=== PATIENT | female | born 1995 | race Caucasian/White ===

== ENCOUNTER 2020-04-30 17:45 | Inpatient (IN) | payer OTHER ==
[2020-04-30] MEDS ORDERED: DINOPROSTONE 10 MG VAGINAL SUPPOSITORY VG ONE (18:13)
--- NOTE | 2020-04-30 18:17 | HP ---
Past Medical History - Admission History Source: Patient, Family Member Limitations to Obtaining History: No Limitations - Past Medical History ...: 1 ...Para: 0 ... Weeks Gestation by Dates: 41 ...EDC by Marta: 04/24/20 - Past Surgical History Hx Myomectomy: No Hx Transabdominal Cerclage: No - Smoking History Smoking history: Never smoked Have you smoked in the past 12 months: No - Alcohol/Substance Use Hx Alcohol Use: No History of Substance Use: reports: None - Social History ADL: Independent History of Recent Travel: No Home Medications - Allergies Allergies/Adverse Reactions: Allergies Allergy/AdvReac Type Severity Reaction Status Date / Time No Known Allergies Allergy Verified 04/28/20 12:46 - Home Medications Home Medications: Ambulatory Orders Pnv No.95/Ferrous Fum/Folic AC [ Formula] 1 each PO DAILY 04/07/20
[2020-04-30 18:23] VITALS: BMI 30.2
--- NOTE | 2020-04-30 18:44 | PN ---
Progress Note (short form) - Note Progress Note: 24 y old p0 admited at 40+6 weeks gestation for iduction of labor , pt. had a follow up with maternal medicine with several sonogram follow uo the growth of fetus , EFW 3000 Gm . +FM, no bleeding , no ROM . FHR 150/ min + Mod, variability . NO CTX . CVX long /closed . post . 40% . Cephalic . intact . cervidil insertion for cervical ripping , will cont. monitor . Pain management prn . obtain PNC chart
[2020-04-30 20:03] LABS: BASO % 0.2 % (0-2.0); EOS % 1.5 % (0-4.5); HEMATOCRIT 31.5 % (32.4-45.2); HEMOGLOBIN 10.8 GM/dL (10.7-15.3); LYMPH % 16.9 % (8-40); MCHC 34.4 g/dl (32.0-36.0); MEAN CELL VOLUME 93.1 fl (80-96); MEAN PLT VOLUME 8.3 fl (7.5-11.1); MONO % 9.1 % (3.8-10.2); NEUT % 72.3 % (42.8-82.8); PLATELET COUNT 234 K/MM3 (134-434); RBC 3.38 M/mm3 (3.60-5.2); RDW 13.4 % (11.6-15.6); WHITE BLOOD COUNT 12.4 K/mm3 (4.0-10.0)
[2020-04-30 20:11] LABS: INR 0.92 (0.83-1.09); PROTHROMBIN TIME (PATIENT) 10.8 SEC (9.7-13.0)
[2020-04-30 20:14] LABS: ACTIVATED PTT 26.5 SECONDS (25.2-36.5)
[2020-04-30 20:24] LABS: BLOOD UREA NITROGEN 11.1 mg/dL (7-18); CALCIUM 9.1 mg/dL (8.5-10.1); CREATININE 0.5 mg/dL (0.55-1.3); POTASSIUM 3.9 mmol/L (3.5-5.1)
[2020-04-30] MEDS: ELECTROLYTE-148 SOLN 1,000 ML IV SCH (21:00)
[2020-05-01] MEDS ORDERED: OXYTOCIN 30 UNITS in 0.9% NS 30 UNIT/500 ML INFUS.BAG IVPB ONE (09:33)
[2020-05-01] MEDS ORDERED: OXYTOCIN 30 UNITS in 0.9% NS 30 UNIT/500 ML INFUS.BAG IVPB SCH (11:45)
[2020-05-01] MEDS ORDERED: BUTORPHANOL TARTRATE 2 MG/ML VIAL ONE (15:16)
[2020-05-01] MEDS ORDERED: PROMETHAZINE HCL 25 MG/1 ML VIAL ONE (15:16)
[2020-05-01] MEDS ORDERED: PROMETHAZINE HCL 25 MG/1 ML VIAL IVPB ONE (15:30)
[2020-05-01] MEDS ORDERED: BUTORPHANOL TARTRATE 2 MG/ML VIAL IVPB ONE (15:30)
--- NOTE | 2020-05-01 17:20 | PN ---
Progress Note (short form) - Note Progress Note: Patient seen and evaluated at bed side , patient received Phengren for pain and fells comfortable, in NAD VE: 8/100/0 [place]: Q3-4 min FHR: category I AROM Clear A/P IUP 41 weeks in labor will continue labor augmentation with Pitocin AROM Clear minimal fluid Anticipating
[2020-05-01] MEDS ORDERED: LIDOCAINE HCL 1% PRESERVATIVE FREE - 30ML VIAL ONE ×2 (17:51→20:12)
--- NOTE | 2020-05-01 19:23 | PN ---
Progress Note (short form) - Note Progress Note: Patient seen and evaluated at bed side , patient received Phengren for pain and fells comfortable, in NAD VE: Fully/100/+1 [place]: Q2-3 min FHR: category I A/P IUP 41 weeks in labor will continue labor augmentation with Pitocin Patient was laboring down Will start pushing Anticipating
--- NOTE | 2020-05-01 20:36 | PROC ---
Obstetrical Vaccum Device - Doc. Following Use of Vaccum Device Indications for use: Maternal Exhaustion (VAVD due to very poor maternal effort, one application no POP OFFS), Prolonged Second Stage Risks and Benefits Explained: Yes (Poor maternal effort) Consent on Chart: Yes Dilation (0-10): 10 Station: 3 Molding: No Position: OP Caput: Yes Proper placement of cup confirmed: Yes Number of pulls: 1 Number of pop-offs: 0 Duration of time cup on head (min): 1 Appearance of head on delivery: Normal Folder Operator present during vacuum extraction: Yes Folder Operator & nursery staff notified of vacuum extraction: Yes
[2020-05-01] MEDS ORDERED: METHYLERGONOVINE MALEATE 0.2 MG/1 ML AMP IM PRN (20:44)
[2020-05-01] MEDS ORDERED: BENZOCAINE 28 GM HEMORRHOIDAL OINTMENT TP PRN (20:44)
[2020-05-01] MEDS ORDERED: BISACODYL 10 MG SUPP.RECT RC PRN (20:44)
--- NOTE | 2020-05-01 20:44 | PN ---
Delivery - Delivery Vaginal Delivery: Vacuum Assist (VAVD due to poor maternal effort, one application no POP OFFS, over Midline episiotomy, live Baby boy, AGARS 9/9, head deliverd atrmaticly in OP postion, shoulders and body delverd spontenously smothly, cord clamped and cut, baby handed off to awating pediadtrecian.), Vacuum Extraction (VAVD due to poor maternal effort, one application no POP OFFS, over Midline episiotomy, live Baby boy, AGARS 9/9, head deliverd atrmaticly in OP postion, shoulders and body delverd spontenously smothly, cord clamped and cut, baby handed off to awating pediadtrecian.) Type of Anesthesia: Local Episiotomy/Laceration: Midline EBL (cc): 350 Delivery, Single - Stages of Labor Date 1st Stage Initiatied: 04/30/20 Date 2nd Stage Initiated: 05/01/20 Date of Delivery: 05/01/20 Placenta: Yes: Spontaneous - Condition of Mlt/Management Sme Present: Yes Infant Gender: Male Position: OP (VAVD due to poor maternal effort, one application no POP OFFS, over Midline episiotomy, live Baby boy, AGARS 9/9, head deliverd atrmaticly in OP postion, shoulders and body delverd spontenously smothly, cord clamped and cut, baby handed off to awating pediadtrecian.) - [place] Feeding Plan Initial Plan: Elected not to breastfeed exclusively throughout hospitalization Remarks - Remarks Remarks: VAVD due to poor maternal effort, one application no POP OFFS, over Midline episiotomy, live Baby boy, AGARS 9/9, head delivered atrumaticly in OP position, shoulders and body delivered spontaneously smoothly, cord around the body, cord clamped and cut, baby handed off to awaiting courtesy bus driver, Midline episiotomy repaired with 2-O chromic under local anethesia, EBL 350 ML, all lap and instrument count correct X2., Mother and baby in stable condition.
[2020-05-01] MEDS ORDERED: OXYTOCIN 20 UNITS in 0.9% NS 20 UNIT/1,000 ML INFUS.BAG IV SCH (20:45)
[2020-05-01] MEDS ORDERED: DOCUSATE SODIUM 100 MG CAPSULE (FP) PO PRN (20:51)
[2020-05-01] MEDS ORDERED: oxyCODONE HCL 5 MG TABLET PO PRN (21:04)
[2020-05-01] MEDS ORDERED: ACETAMINOPHEN 325 MG TABLET (FP) PO PRN (21:05)
[2020-05-01] MEDS ORDERED: OXYTOCIN 20 UNITS in 0.9% NS 20 UNIT/1,000 ML INFUS.BAG IV ONE (22:13)
[2020-05-02] MEDS: BENZOCAINE 20% 57 GM BOTTLE TP PRN ×2 (02:55→22:36)
[2020-05-02] MEDS: FERROUS SO4 325 MG TABLET (FP) PO SCH ×2 (08:05→17:50)
[2020-05-02] MEDS: ACETAMINOPHEN 325 MG TABLET (FP) PO PRN ×2 (08:06→22:32)
[2020-05-02] MEDS: WITCH HAZEL 50% (TUCKS) 40 PAD/JAR PAD TP PRN ×2 (08:07→22:37)
[2020-05-02] MEDS: IBUPROFEN 600 MG TABLET (FP) PO PRN ×2 (08:07→22:31)
[2020-05-02 08:15] LABS: BASO % 0.1 % (0-2.0); EOS % 0.3 % (0-4.5); HEMATOCRIT 21.4 % (32.4-45.2); HEMOGLOBIN 7.1 GM/dL (10.7-15.3); LYMPH % 9.9 % (8-40); MCH 30.6 pg (25.7-33.7); MCHC 33.3 g/dl (32.0-36.0); MEAN CELL VOLUME 91.8 fl (80-96); NEUT % 80.7 % (42.8-82.8); PLATELET COUNT 195 K/MM3 (134-434); RBC 2.33 M/mm3 (3.60-5.2); RDW 13.4 % (11.6-15.6); WHITE BLOOD COUNT 18.2 K/mm3 (4.0-10.0)
[2020-05-02] MEDS: PRENATAL VITAMINS W/ FOLIC ACID TABLET (FP) PO SCH (09:37)
[2020-05-02] MEDS: ELECTROLYTE-148 SOLN 1,000 ML IV SCH (09:38)
[2020-05-02] MEDS: AMPICILLIN - 2 GM in SODIUM CHLORIDE 100 ML IVPB SCH ×3 (13:27→20:06)
[2020-05-02] MEDS: GENTAMICIN 80 MG PREMIXED IVPB 80 MG/100 ML BAG IVPB SCH ×2 (14:22→17:51)
[2020-05-02] MEDS: CLINDAMYCIN 900 MG PREMIX IVPB 900 MG/50 ML BAG IVPB SCH ×2 (14:22→17:51)
--- NOTE | 2020-05-02 17:57 | PN ---
Post Progress Note Type of Delivery: Vacuum Assist Vag Del Vital Signs: Vital Signs Temperature 98.1 F 05/02/20 16:02 Pulse Rate 79 05/02/20 16:02 Respiratory Rate 18 05/02/20 16:02 Blood Pressure 108/68 05/02/20 16:02 O2 Sat by Pulse Oximetry (%) 96 05/01/20 23:00 Breast Exam: Yes: Soft Uterus: Yes: Fundus Firm Incision: Yes: Sutures intact Abdomen/GI: Yes: Abdomen soft, Tolerating PO Lochia: Yes: Serosa Lochia, amount: Small Extremities: Yes: Calves non-tender Perineum: Yes: Episiotomy Activity: Ambulating (PPD#1 S/P VAVDdue to poor maternal effort doing well, Hgb 7.1, Tolerating diet, voiding and ambulating without difficulty) - Labs Labs: CBC WBC 18.2 K/mm3 (4.0-10.0) H 05/02/20 07:09 RBC 2.33 M/mm3 (3.60-5.2) L 05/02/20 07:09 Hgb 7.1 GM/dL (10.7-15.3) L 05/02/20 07:09 Hct 21.4 % (32.4-45.2) L D 05/02/20 07:09 MCV 91.8 fl (80-96) 05/02/20 07:09 MCH 30.6 pg (25.7-33.7) 05/02/20 07:09 MCHC 33.3 g/dl (32.0-36.0) 05/02/20 07:09 RDW 13.4 % (11.6-15.6) 05/02/20 07:09 Plt Count 195 K/MM3 (134-434) 05/02/20 07:09 MPV 8.0 fl (7.5-11.1) 05/02/20 07:09 Absolute Neuts (auto) 14.7 K/mm3 (1.5-8.0) H 05/02/20 07:09 Neutrophils % 80.7 % (42.8-82.8) 05/02/20 07:09 Lymphocytes % 9.9 % (8-40) D 05/02/20 07:09 Monocytes % 9.0 % (3.8-10.2) 05/02/20 07:09 Eosinophils % 0.3 % (0-4.5) 05/02/20 07:09 Basophils % 0.1 % (0-2.0) 05/02/20 07:09 Nucleated RBC % 0 % (0-0) 05/02/20 07:09 Other Findings, Remarks: PPD#1 S/P VAVD due to poor maternal effort, doing well, tolerating diet, ambulating, voiding without difficulty, +BM. VS: stable, had tachycardia earlier PE: AAOX3 in NAD HEENT: NC/AT, Supple Chest: CTA, S1/S2 Abd: soft, NT, ND, +ve BS Uterus Firm below the Umbilicus Ext: -C/C/E, negative laura' BL. PP labs Hgb 7.1 A/P PPD#1 S/P VAVD due to poor maternal effort, doing well, Symptomatic anemia Hbg 10.8->7.1 transfusing 2 units PRBC's, F/U CBC in AM tomorrow. Elevated WBC's Endometrities Started triple abx, Amp, Genta & Clinda x 24H OOB as tolerated Will DC home tomorrow if stable and to F/U in [facility]. Patient requested circumcision for baby boy, informed witnessed consent obtained. Problem List - Problems (1) Endometritis following delivery Problems reviewed: Yes Code(s): O86.12 - ENDOMETRITIS FOLLOWING DELIVERY (2) Symptomatic anemia Problems reviewed: Yes Code(s): D64.9 - ANEMIA, UNSPECIFIED (3) Post-dates Problems reviewed: Yes Code(s): O48.0 - POST-TERM (4) Vacuum-assisted vaginal delivery Problems reviewed: Yes Code(s): Z37.9 - OUTCOME OF DELIVERY, UNSPECIFIED (5) Status post vacuum-assisted vaginal delivery Problems reviewed: Yes Code(s): Z87.59 - PERSONAL HISTORY OF COMP OF PREG, CHLDBRTH AND THE PUERP Assessment/Plan PPD#1 S/P VAVD due to poor maternal effort, doing well, tolerating diet, ambulating, voiding without difficulty, +BM. VS: stable, had tachycardia earlier PE: AAOX3 in NAD HEENT: NC/AT, Supple Chest: CTA, S1/S2 Abd: soft, NT, ND, +ve BS Uterus Firm below the Umbilicus Ext: -C/C/E, negative laura' BL. PP labs Hgb 7.1 A/P PPD#1 S/P VAVD due to poor maternal effort, doing well, Symptomatic anemia Hbg 10.8->7.1 transfusing 2 units PRBC's, F/U CBC in AM tomorrow. Elevated WBC's Endometrities Started triple abx, Amp, Genta & Clinda x 24H OOB as tolerated Will DC home tomorrow if stable and to F/U in [facility] [place]. Patient requested circumcision for baby boy, informed witnessed consent obtained.
--- NOTE | 2020-05-02 18:07 | DS ---
Physical Examination Vital Signs: Vital Signs Temperature 98.1 F 05/02/20 16:02 Pulse Rate 79 05/02/20 16:02 Respiratory Rate 18 05/02/20 16:02 Blood Pressure 108/68 05/02/20 16:02 O2 Sat by Pulse Oximetry (%) 96 05/01/20 23:00 Constitutional: Yes: Well Nourished Eyes: Yes: WNL HENT: Yes: WNL Neck: Yes: WNL Cardiovascular: Yes: WNL Respiratory: Yes: WNL Gastrointestinal: Yes: WNL ...Rectal Exam: Yes: WNL Renal/: Yes: WNL Breast(s): Yes: WNL Musculoskeletal: Yes: WNL Extremities: Yes: WNL Edema: No Peripheral Pulses WNL: Yes Wound/Incision: Yes: Clean/Dry, Sutures Intact Neurological: Yes: WNL ...Motor Strength: WNL Psychiatric: Yes: WNL Labs: CBC, BMP 05/02/20 07:09 04/30/20 19:20 Discharge Summary Problems reviewed: Yes Current Active Problems Endometritis following delivery (Acute) Status post vacuum-assisted vaginal delivery (Acute) Symptomatic anemia (Acute) Vacuum-assisted vaginal delivery (Acute) Condition: Stable - Instructions Diet, Activity, Other Instructions: follow up at [facility] with Dr. White on TuesdayMay 07 at 9am. no appointment needed. staff aware. Disposition: HOME - Home Medications Comprehensive Discharge Medication List: Ambulatory Orders Pnv No.95/Ferrous Fum/Folic AC [ Formula] 1 each PO DAILY 04/07/20 Tablet 1 tablet PO DAILY 04/30/20
--- NOTE | 2020-05-02 18:13 | DS ---
Physical Exam-WORKERS COMPENSATION DEFENSE ATTORNEY Vital Signs: Vital Signs Temperature 98.1 F 05/02/20 16:02 Pulse Rate 79 05/02/20 16:02 Respiratory Rate 18 05/02/20 16:02 Blood Pressure 108/68 05/02/20 16:02 O2 Sat by Pulse Oximetry (%) 96 05/01/20 23:00 Constitutional: Yes: Well Nourished Eyes: Yes: WNL HENT: Yes: WNL Neck: Yes: WNL Cardiovascular: Yes: WNL Respiratory: Yes: WNL Gastrointestinal: Yes: WNL ...Rectal Exam: Yes: WNL Renal/: Yes: WNL Pelvis: Yes: WNL External Genitalia: Yes: Normal Vaginal Exam: Yes: Normal Uterus: Yes: Firm ....Post : Yes: Uterus firm, Uterus non-tender Breast(s): Yes: WNL Musculoskeletal: Yes: WNL Extremities: Yes: WNL Edema: No Integumentary: Yes: WNL Wound/Incision: Yes: Clean/Dry, Sutures Intact Neurological: Yes: WNL ...Motor Strength: WNL Psychiatric: Yes: WNL ( PPD#1 S/P VAVD due to poor maternal effort, doing well, tolerating diet, ambulating, voiding without difficulty, +BM. VS: stable, had tachycardia earlier PE: AAOX3 in NAD HEENT: NC/AT, Supple Chest: CTA, S1/S2 Abd: soft, NT, ND, +ve BS Uterus Firm below the Umbilicus Ext: -C/C/E, negative laura' BL. PP labs Hgb 7.1 A/P PPD#1 S/P VAVD due to poor maternal effort, doing well, Symptomatic anemia Hbg 10.8->7.1 transfusing 2 units PRBC's, F/U CBC in AM tomorrow. Elevated WBC's Endometrities Started triple abx, Amp, Genta & Clinda x 24H OOB as tolerated Will DC home tomorrow if stable and to F/U in [facility] [place]. Patient requested circumcision for baby boy, informed witnessed consent obtained.) Labs: CBC, BMP 05/02/20 07:09 04/30/20 19:20 Delivery - Delivery Vaginal Delivery: Vacuum Assist (VAVD due to poor maternal effort, one application no POP OFFS, over Midline episiotomy, live Baby boy, AGARS 9/9, head deliverd atrmaticly in OP postion, shoulders and body delverd spontenously smothly, cord clamped and cut, baby handed off to awating pediadtrecian.), Vacuum Extraction (VAVD due to poor maternal effort, one application no POP OFFS, over Midline episiotomy, live Baby boy, AGARS 9/9, head deliverd atrmaticly in OP postion, shoulders and body delverd spontenously smothly, cord clamped and cut, baby handed off to awating pediadtrecian.) Type of Anesthesia: Local Episiotomy/Laceration: Midline EBL (cc): 350 Delivery, Single - Stages of Labor Date 1st Stage Initiatied: 04/30/20 Time 1st Stage Initiated: 23:00 Date 2nd Stage Initiated: 05/01/20 Time 2nd Stage Initiated: 15:15 Date of Delivery: 05/01/20 Time of Delivery: 20:04 Time Placenta Delivered: 20:09 Placenta: Yes: Spontaneous - Condition of Infant Supervisor Edging/Cut Out And Marking Machine Operator Present: Yes Name: Estephanie Martins Infant Gender: Male Weight: 3.062 kg Position: OP Total Hours ROM (Hrs/Mins): 2 hr 59 mins - 1 Minute Total Score: 9 5 Minutes Total Score: 9 - [place] Feeding Plan Initial Plan: Elected not to breastfeed exclusively throughout hospitalization Discharge Summary Problems reviewed: Yes Current Active Problems Endometritis following delivery (Acute) Status post vacuum-assisted vaginal delivery (Acute) Symptomatic anemia (Acute) Vacuum-assisted vaginal delivery (Acute) Condition: Stable - Instructions Diet, Activity, Other Instructions: follow up at [facility] with Dr. White on TuesdayMay 07 at 9am. no appointment needed. staff aware. Disposition: HOME - Home Medications Comprehensive Discharge Medication List: Ambulatory Orders Pnv No.95/Ferrous Fum/Folic AC [ Formula] 1 each PO DAILY 04/07/20 Tablet 1 tablet PO DAILY 04/30/20
[2020-05-02] MEDS ORDERED: SENNOSIDES/DOCUSATE COMBO (SENNA PLUS) TABLET (UD) PO PRN (22:00)
[2020-05-03] MEDS: AMPICILLIN - 2 GM in SODIUM CHLORIDE 100 ML IVPB SCH ×3 (00:09→08:59)
[2020-05-03] MEDS: CLINDAMYCIN 900 MG PREMIX IVPB 900 MG/50 ML BAG IVPB SCH (01:34)
[2020-05-03] MEDS: GENTAMICIN 80 MG PREMIXED IVPB 80 MG/100 ML BAG IVPB SCH (02:23)
[2020-05-03 07:52] LABS: BASO % 0.3 % (0-2.0); EOS % 1.6 % (0-4.5); HEMATOCRIT 25.6 % (32.4-45.2); HEMOGLOBIN 8.7 GM/dL (10.7-15.3); LYMPH % 13.1 % (8-40); MCH 30.1 pg (25.7-33.7); MCHC 33.9 g/dl (32.0-36.0); MONO % 9.3 % (3.8-10.2); NEUT % 75.7 % (42.8-82.8); PLATELET COUNT 206 K/MM3 (134-434); RBC 2.88 M/mm3 (3.60-5.2); RDW 15.1 % (11.6-15.6); WHITE BLOOD COUNT 20.2 K/mm3 (4.0-10.0)
[2020-05-03] MEDS ORDERED: AMPICILLIN SODIUM 2 GM VIAL ONE (08:21)
[2020-05-03] MEDS ORDERED: SODIUM CHLORIDE 100 ML IVPB ONE (08:21)
[2020-05-03] MEDS: FERROUS SO4 325 MG TABLET (FP) PO SCH (08:59)
[2020-05-03] MEDS: PRENATAL VITAMINS W/ FOLIC ACID TABLET (FP) PO SCH (08:59)
[2020-05-03 09:04] VITALS: BP 100/66; PULSE 77; TEMP 98.1
[2020-05-03 11:15] LABS: ANISOCYTOSIS 0; MACROCYTOSIS 0; PLATELET ESTIMATE NORMAL
--- NOTE | 2020-05-03 13:57 | PN ---
Post Progress Note Type of Delivery: Vacuum Assist Vag Del Vital Signs: Vital Signs Temperature 98.1 F 05/03/20 09:03 Pulse Rate 77 05/03/20 09:03 Respiratory Rate 18 05/03/20 09:00 Blood Pressure 100/66 05/03/20 09:03 O2 Sat by Pulse Oximetry (%) 96 05/03/20 09:00 Breast Exam: Yes: Soft Uterus: Yes: Fundus Firm, Fundus below umbilicus Incision: Yes: Sutures intact Abdomen/GI: Yes: Abdomen soft Lochia: Yes: Serosa Lochia, amount: Small Extremities: Yes: Calves non-tender Perineum: Yes: Episiotomy Activity: Ambulating - Labs Labs: CBC WBC 20.2 K/mm3 (4.0-10.0) H 05/03/20 07:08 RBC 2.88 M/mm3 (3.60-5.2) L 05/03/20 07:08 Hgb 8.7 GM/dL (10.7-15.3) L 05/03/20 07:08 Hct 25.6 % (32.4-45.2) L D 05/03/20 07:08 MCV 89.0 fl (80-96) 05/03/20 07:08 MCH 30.1 pg (25.7-33.7) 05/03/20 07:08 MCHC 33.9 g/dl (32.0-36.0) 05/03/20 07:08 RDW 15.1 % (11.6-15.6) D 05/03/20 07:08 Plt Count 206 K/MM3 (134-434) 05/03/20 07:08 MPV 8.0 fl (7.5-11.1) 05/03/20 07:08 Absolute Neuts (auto) 15.3 K/mm3 (1.5-8.0) H 05/03/20 07:08 Neutrophils % 75.7 % (42.8-82.8) 05/03/20 07:08 Neutrophils % (Manual) 85.9 % (42.8-82.8) H 05/03/20 07:08 Band Neutrophils % 0.0 % 05/03/20 07:08 Lymphocytes % 13.1 % (8-40) D 05/03/20 07:08 Lymphocytes % (Manual) 7.1 % (8-40) L 05/03/20 07:08 Monocytes % 9.3 % (3.8-10.2) 05/03/20 07:08 Monocytes % (Manual) 2 % (3.8-10.2) L 05/03/20 07:08 Eosinophils % 1.6 % (0-4.5) D 05/03/20 07:08 Eosinophils % (Manual) 5.0 % (0-4.5) H 05/03/20 07:08 Basophils % 0.3 % (0-2.0) 05/03/20 07:08 Basophils % (Manual) 0.0 % (0-2.0) 05/03/20 07:08 Myelocytes % (Man) 0 % (0-2) 05/03/20 07:08 Promyelocytes % (Man) 0 % (0-2) 05/03/20 07:08 Blast Cells % (Manual) 0 % (0-0) 05/03/20 07:08 Nucleated RBC % 0 % (0-0) 05/03/20 07:08 Metamyelocytes 0 % (0-2) 05/03/20 07:08 Hypochromia 0 05/03/20 07:08 Platelet Estimate Normal 05/03/20 07:08 Polychromasia 0 05/03/20 07:08 Poikilocytosis 0 05/03/20 07:08 Anisocytosis 0 05/03/20 07:08 Microcytosis 0 05/03/20 07:08 Macrocytosis 0 05/03/20 07:08 Problem List - Problems (1) Endometritis following delivery Problems reviewed: Yes Code(s): O86.12 - ENDOMETRITIS FOLLOWING DELIVERY (2) Symptomatic anemia Problems reviewed: Yes Code(s): D64.9 - ANEMIA, UNSPECIFIED (3) Post-dates Problems reviewed: Yes Code(s): O48.0 - POST-TERM (4) Vacuum-assisted vaginal delivery Problems reviewed: Yes Code(s): Z37.9 - OUTCOME OF DELIVERY, UNSPECIFIED (5) Status post vacuum-assisted vaginal delivery Problems reviewed: Yes Code(s): Z87.59 - PERSONAL HISTORY OF COMP OF PREG, CHLDBRTH AND THE PUERP Assessment/Plan PPD#2 S/P VAVD due to poor maternal effort, doing well, tolerating diet, ambulating, voiding without difficulty, +BM. VS: stable, T 98.2, BP 106/60, P 74, R 20, PO2 96% om RA PE: AAOX3 in NAD HEENT: NC/AT, Supple Chest: CTA, S1/S2 Abd: soft, NT, ND, +ve BS Uterus Firm below the Umbilicus Ext: -C/C/E, negative laura' BL. PP labs Hgb 7.1 -> 8.7 A/P PPD#2 S/P VAVD due to poor maternal effort, doing well, Stable. Symptomatic anemia Hbg 7.1 ->8.7 S/P transfusion 2 units PRBC's, Endometrities S/P triple abx, Amp, Genta & Clinda x 24H, afebrail. OOB as tolerated Will DC home today and [facility] [place]. Circumcision for baby boy done.
== END 2020-05-03 13:27 | disposition home or self-care (01) | DRG 560 ==
LOC: JLDR 17:45 → J3N 05-01 22:18 → J3W 05-02 17:05
PROVIDERS: ADMIT Family Medicine; ATTEND Family Medicine
PROC: 3E0P7VZ Introduction of Hormone into Female Reproductive, Via Natural or Artificial Opening (ICD-10-PCS; 2020-04-30)
PROC: 10D07Z6 Extraction of Products of Conception, Vacuum, Via Natural or Artificial Opening (ICD-10-PCS; principal; 2020-05-01)
PROC: 10907ZC Drainage of Amniotic Fluid, Therapeutic from Products of Conception, Via Natural or Artificial Opening (ICD-10-PCS; 2020-05-01)
PROC: 0W8NXZZ Division of Female Perineum, External Approach (ICD-10-PCS; 2020-05-01)
PROC: 30233N1 Transfusion of Nonautologous Red Blood Cells into Peripheral Vein, Percutaneous Approach (ICD-10-PCS; 2020-05-01)
DX: O48.0 Post-term pregnancy (principal); O86.12 Endometritis following delivery; O69.89X0 Labor and delivery complicated by other cord complications, not applicable or unspecified; O69.81X0 Labor and delivery complicated by cord around neck, without compression, not applicable or unspecified; O90.81 Anemia of the puerperium; D64.9 Anemia, unspecified; O75.81 Maternal exhaustion complicating labor and delivery; D72.829 Elevated white blood cell count, unspecified; Z37.0 Single live birth; Z3A.41 41 weeks gestation of pregnancy
CPT/HCPCS: 36415; 36430; 59409; 80048; 85025; 85610; 85730; 86780; 86850; 86900; 86901; 86922; 87389; P9058